=== PATIENT | male | born 1990 | race Hispanic/Latino ===

== ENCOUNTER 2020-03-11 13:35 | Emergency (ER) | payer OTHER ==
[2020-03-12 16:07] LABS: SARS-CoV-2 MS2 Positive; SARS-CoV-2 N Gene Positive; SARS-CoV-2 S Gene Positive; SARS-CoV-2 orf1ab Positive
== END 2020-03-11 15:00 | disposition home or self-care (01) ==
LOC: ERS 13:35
DX: U07.1 COVID-19 (principal); R05 Cough; R50.9 Fever, unspecified
CPT/HCPCS: 87635; 99283; U0003

== ENCOUNTER 2020-06-13 21:11 | Emergency (ER) | payer SELFPAY | END 2020-06-13 21:58 | disposition home or self-care (01) | LOC: ERS 21:11 | DX: R10.13 Epigastric pain (principal); Z86.19 Personal history of other infectious and parasitic diseases | CPT/HCPCS: 99283 ==

== ENCOUNTER 2020-07-11 15:04 | Outpatient (CLI) | payer OTHER ==
--- NOTE | 2020-07-11 15:50 | ULT ---
Scrotal sonogram with duplex evaluation HISTORY: Left scrotal pain. FINDINGS: Right testicle is 4.3 cm length and left 3.9 cm. Each has a normal appearance with symmetri c color and spectral Doppler flow. Occasional tiny microcalcification. No focal mass. Very small amount of fluid within each side of the scrotum. IMPRESSION : No evidence of testicular mass or torsion.
== END 2020-07-11 15:05 | disposition home or self-care (01) ==
LOC: SCSULT 15:04
PROVIDERS: ATTEND Urology
DX: N45.1 Epididymitis (principal)
CPT/HCPCS: 76870; 93976